=== PATIENT | female | born 1955 | race Caucasian/White ===

== ENCOUNTER → 2018-10-26 15:33 | Outpatient (CLI) | payer OTHER, SELFPAY | PROVIDERS: Referring Provider Otolaryngology Otolaryngology/Facial Plastic Surgery; Visit Provider Otolaryngology Otolaryngology/Facial Plastic Surgery | DX: J32.9 Chronic sinusitis, unspecified (principal); J06.0 Acute laryngopharyngitis | CPT/HCPCS: 87070; 87077; 87205 ==